=== PATIENT | female | born 1945 | race Caucasian/White ===

== ENCOUNTER 2017-05-15 09:07 | Emergency (ER) | payer OTHER ==
[2017-05-15 09:12] VITALS: RESP 16
[2017-05-15] MEDS ORDERED: NS 1,000 ML IV ONE (09:46)
[2017-05-15] MEDS ORDERED: ACYCLOVIR 400 MG TAB PO ONE (09:51)
--- NOTE | 2017-05-15 10:01 | EDPHY ---
H & P Stated Complaint: LLQ abd pain/hip pain with rash starting 2 days ago HPI/ROS: CHIEF COMPLAINT: Abdominal pain, left hip pain with rash HISTORY OF PRESENT ILLNESS: Patient complains of left lower quadrant abdominal pain, left hip pain and rash to left hip. Pain started approximately 2 days ago as did the rash. The rash is erythematous, and raised with some vesicles. It wraps from the left upper buttock down into the thigh and groin. No involvement anywhere else on the person, specifically no involvement of the face or nose. Minimally painful to the touch. The abdominal pain is mild. It seems to be worse with meals at times. It does not radiate. There is nausea but no vomiting. No constipation or diarrhea. No bloody stools. Does have a history of diverticulosis diagnosed by colonoscopy 5 years ago. No other associated complaints or modifying factors. REVIEW OF SYSTEMS: Ten systems reviewed and are negative unless otherwise noted in the HPI PAST MEDICAL HISTORY: Osteoporosis, diverticulosis PAST SURGICAL HISTORY: Hysterectomy, orthopedic surgeries SOCIAL HISTORY: Nonsmoker FAMILY HISTORY: Noncontributory EXAMINATION General Appearance: Alert, no distress Head: normocephalic, atraumatic Eyes: Pupils equal and round, no conjunctival pallor or injection ENT, Mouth: Mucous membranes moist. Uvula midline. Neck: Normal inspection, supple, non-tender Respiratory: Lungs are clear to auscultation. No wheezing, rhonchi or crackles Cardiovascular: Regular rate and rhythm. No murmur. Pulses intact distally Gastrointestinal: Abdomen is soft with mild tenderness to left lower quadrant. No guarding. No rigidity or distention. No CVA tenderness. Back: non-tender, no bony abnormalities Neurological: A&O, nonfocal, normal gait Skin: Warm and dry. There is plaque type rash with vesicular lesion centrally over the left upper buttock wrapping down across a dermatome into the upper thigh. There are no lesions anywhere else on her person. Specifically no lesions of the face or nose Extremities: Nontender, no pedal edema Psychiatric: Mood and affect normal DIFFERENTIAL DIAGNOSES: Including but not limited to zoster, rash, hip pain, colitis, diverticulitis, enteritis, cystitis, ureterolithiasis, renal colic MDM: 9:50 a.m. Abdominal pain with history examination suggesting diverticulitis versus colitis. She has a nonacute abdomen. She also has shingles over the left hip into the buttock. I feel that these are several issues, thus I have ordered laboratory studies and CT scan of the abdomen and pelvis. I have also started treatment with acyclovir. She is resting comfortably in no acute distress. 11:00 a.m. Laboratory studies are all within normal limits. CT scan of the abdomen pelvis is pending at this time. She remains comfortable in no acute distress. 11:18 a.m. Notified by radiologist Dr. Jaeger. No significant acute findings of the CT scan of the abdomen pelvis. There is some stool in the rectosigmoid region. There is 1 lymph node noted in the left inguinal region. No other acute findings. I have re-evaluated the patient. She is resting comfortably, reading a book. No complaints of pain at this time. Proceed with treatment of the shingles with Valtrex as discussed to completion. Treat the possibility of early constipation with increased fluid intake, increase fiber intake, senna and Colace. She is to follow up with primary care physician for further care. She is to return here for any worsening pain, any lesions of the face, nose or surrounding the eye. She is comfortable with this plan and discharged home stable condition. SUPERVISION: This patient was independently evaluated without direct examination by the attending physician. Case was discussed with attending physician. Case discussed with Dr. Christian Source: Patient Exam Limitations: No limitations - Personal History Current Tetanus/Diphtheria Vaccine: Yes Current Tetanus Diphtheria and Acellular Pertussis (TDAP): Yes - Medical/Surgical History Hx Asthma: No Hx Chronic Respiratory Disease: No Hx Diabetes: No Hx Cardiac Disease: No Hx Renal Disease: No Hx Cirrhosis: No Hx Alcoholism: No Hx HIV/AIDS: No Hx Splenectomy or Spleen Trauma: No Other PMH: osteoporosis, hysterectomy, cataract surgery - Social History Smoking Status: Never smoked Constitutional: Initial Vital Signs Temperature (C) 97.7 F 05/15/17 09:08 Heart Rate 74 05/15/17 09:08 Respiratory Rate 16 05/15/17 09:08 Blood Pressure 125/83 H 05/15/17 09:08 O2 Sat (%) 98 05/15/17 09:08 O2 Delivery Mode Room Air Allergies/Adverse Reactions: Penicillins Allergy (Mild, Verified 11/04/15 09:07) Home Medications: Medication Instructions Recorded Calcium/D3/Mag Ox/Newspaper Journalist/Darren/Zn 1 each PO DAILY 11/03/15 [Caltrate+D3 Plus Mineral Minis] Cephalexin [Keflex] 500 mg PO QID #4 cap 11/03/15 Multivitamins [Tab-A-Peter] 1 each PO DAILY 11/03/15 Tramadol HCl 50 mg PO Q6H PRN 11/03/15 Vitamin B Complex [Super B-50 1 each PO DAILY 11/03/15 Complex] Estradiol [Vivelle-Dot 0.0375MG 0.0375 mg TD SuWe@0800 11/04/15 (RX)] HYDROmorphone HCL [Dilaudid 2 mg 2 mg PO Q4-6PRN PRN #40 tab 11/04/15 (*)] Herbals/Supplements -Info Only 1 ea PO DAILY 11/04/15 Hydrocodone/APAP 5/325 [[facility] 1 - 2 tab PO Q4H PRN #14 tab 05/15/17 5/325 (*)] Valacyclovir HCl [Valtrex] 1,000 mg PO TID #21 tab 05/15/17 Medical Decision Making - Diagnostics Imaging Results: Imaging Impressions Abdomen CT 05/15/17 09:50 Impression: 1. Sigmoid diverticulosis without diverticulitis, bowel obstruction, or abscess. 2. Left inguinal 15 mm probable inflammatory lymph node which may be secondary to the patient's shingles. 3. Mild atherosclerotic disease without aortic aneurysm. 4. Degenerative lumbar spine. Findings discussed with Emergency Department physician's certified physician assistant, Garret Del Rio , at 1121 hours, 05/15/2017. Final report concurs with initial preliminary interpretation. - Data Points Laboratory Results: Laboratory Results 05/15/17 10:05 05/15/17 10:05 05/15/17 05/15/17 10:05 10:05 WBC 5.07 10^3/uL 10^3/uL (3.80-9.50) RBC 4.60 10^6/uL 10^6/uL (4.18-5.33) Hgb 13.1 g/dL g/dL (12.6-16.3) Hct 39.8 % % (38.0-47.0) MCV 86.5 fL fL (81.5-99.8) MCH 28.5 pg pg (27.9-34.1) MCHC 32.9 g/dL g/dL (32.4-36.7) RDW 13.7 % % (11.5-15.2) Plt Count 228 10^3/uL 10^3/uL (150-400) MPV 11.0 fL fL (8.7-11.7) Neut % (Auto) 58.4 % % (39.3-74.2) Lymph % (Auto) 26.0 % % (15.0-45.0) [place] % (Auto) 11.8 % % (4.5-13.0) Eos % (Auto) 2.6 % % (0.6-7.6) Baso % (Auto) 1.0 % % (0.3-1.7) Nucleat RBC Rel Count 0.0 % % (0.0-0.2) Absolute Neuts (auto) 2.96 10^3/uL 10^3/uL (1.70-6.50) Absolute Lymphs (auto) 1.32 10^3/uL 10^3/uL (1.00-3.00) Absolute Monos (auto) 0.60 10^3/uL 10^3/uL (0.30-0.80) Absolute Eos (auto) 0.13 10^3/uL 10^3/uL (0.03-0.40) Absolute Basos (auto) 0.05 10^3/uL 10^3/uL (0.02-0.10) Absolute Nucleated RBC 0.00 10^3/uL 10^3/uL (0-0.01) Immature Gran % 0.2 % % (0.0-1.1) Immature Gran # 0.01 10^3/uL 10^3/uL (0.00-0.10) Sodium 135 mEq/L mEq/L (134-144) Potassium 4.7 mEq/L mEq/L (3.5-5.2) Chloride 107 mEq/L mEq/L (97-110) Carbon Dioxide 19 mEq/l L mEq/l (22-31) Anion Gap 9 mEq/L mEq/L (8-16) BUN 14 mg/dL mg/dL (7-23) Creatinine 0.9 mg/dL mg/dL (0.6-1.0) Estimated GFR > 60 Glucose 87 mg/dL mg/dL (70-100) Calcium 9.2 mg/dL mg/dL (8.5-10.4) Total Bilirubin 0.9 mg/dL mg/dL (0.1-1.4) Conjugated Bilirubin 0.5 mg/dL mg/dL (0.0-0.5) Unconjugated Bilirubin 0.4 mg/dL mg/dL (0.0-1.1) AST 27 IU/L IU/L (14-46) ALT 23 IU/L IU/L (9-52) Alkaline Phosphatase 57 IU/L IU/L (38-126) Total Protein 6.5 g/dL g/dL (6.3-8.2) Albumin 3.6 g/dL g/dL (3.5-5.0) Lipase 98.0 IU/L IU/L (23-300) Medications Given: Discontinued Medications Acyclovir (Acyclovir) 800 mg PO EDNOW ONE Stop: 05/15/17 09:52 Last Admin: 05/15/17 10:45 Dose: 800 mg Sodium Chloride (Ns) 1,000 mls @ 0 mls/hr IV ONCE ONE; Wide Open PRN Reason: Protocol Stop: 05/15/17 09:47 Last Admin: 05/15/17 10:45 Dose: 1,000 mls Departure - Departure Disposition: Home, Routine, Self-Care Clinical Impression: Zoster Qualifiers: Herpes zoster complications: without complications Qualified Code(s): B02.9 - Zoster without complications Abdominal pain Qualifiers: Abdominal location: left lower quadrant Qualified Code(s): R10.32 - Left lower quadrant pain Condition: Good Instructions: Laxative, Stimulant (By mouth), Senna (By mouth), Constipation ( ED), Shingles (ED), High Fiber Diet (ED) Additional Instructions: 1. Antiviral medication strict regimen as discussed until completion 2. Contact her primary care physician for follow-up 3. Return here for worsening pain, any lesions of the face, nose or surrounding the eye Referrals: Jake Brock DO [Primary Care Provider] - As per Instructions Prescriptions: Hydrocodone/APAP 5/325 [[facility] 5/325 (*)] 1 - 2 tab PO Q4H PRN #14 tab PRN Reason: Pain, Moderate Valacyclovir HCl [Valtrex] 1,000 mg PO TID #21 tab
[2017-05-15 10:16] LABS: % IMMATURE GRANULYOCYTES 0.2 % (0.0-1.1); ABSOLUTE IMMATURE GRANULOCYTES 0.01 10^3/uL (0.00-0.10); ADD DIFF? NO; ADD MORPH? NO; ADD SCAN? NO; ATYPICAL LYMPHOCYTE FLAG 40 (0-99); FRAGMENT RBC FLAG 0 (0-99); HEMATOCRIT 39.8 % (38.0-47.0); HEMOGLOBIN 13.1 g/dL (12.6-16.3); LEFT SHIFT FLG 0 (0-99); LIPEMIA HEMOLYSIS FLAG 80 (0-99); MEAN CELL HEMOGLOBIN 28.5 pg (27.9-34.1); MEAN CELL HEMOGLOBIN CONCENTR. 32.9 g/dL (32.4-36.7); MEAN CELL VOLUME 86.5 fL (81.5-99.8); PLATELET CLUMPS FLAG 10 (0-99); PLATELET COUNT 228 10^3/uL (150-400); RED CELL DISTRIBUTION WIDTH 13.7 % (11.5-15.2)
[2017-05-15 10:32] LABS: ALANINE AMINOTRANSFERASE 23 IU/L (9-52); ALBUMIN 3.6 g/dL (3.5-5.0); ALKALINE PHOSPHATASE 57 IU/L (38-126); ANION GAP 9 mEq/L (8-16); ASPARTATE AMINOTRANSFERASE 27 IU/L (14-46); BILIRUBIN,TOTAL 0.9 mg/dL (0.1-1.4); BILIRUBIN-CONJUGATED 0.5 mg/dL (0.0-0.5); BILIRUBIN-UNCONJUGATED 0.4 mg/dL (0.0-1.1); CALCIUM 9.2 mg/dL (8.5-10.4); CARBON DIOXIDE 19 mEq/l (22-31); CHLORIDE 107 mEq/L (97-110); CREATININE 0.9 mg/dL (0.6-1.0); GLOMERULAR FILTRATION RATE > 60; GLUCOSE 87 mg/dL (70-100); POTASSIUM 4.7 mEq/L (3.5-5.2); SODIUM 135 mEq/L (134-144); TOTAL PROTEIN 6.5 g/dL (6.3-8.2)
[2017-05-15] MEDS ORDERED: IOPAMIDOL (ISOVUE-300) 100 ML BTL ONE (10:38)
[2017-05-15 11:20] VITALS: PULSE 76
[2017-05-15 11:53] VITALS: BP 133/80; TEMP 98.1; O2SAT 98
== END 2017-05-15 11:53 | disposition home or self-care (01) ==
DX: R10.32 Left lower quadrant pain (principal); B02.9 Zoster without complications; E86.9 Volume depletion, unspecified; Z90.710 Acquired absence of both cervix and uterus
CPT/HCPCS: 74177; 96360; 99285; Q9967